=== PATIENT | male | born 1990 | race American Indian/Alaskan Native ===

== ENCOUNTER 2019-09-01 23:09 | Emergency (ER) | payer OTHER ==
[2019-09-01 23:19] VITALS: BP 135/80
[2019-09-02 01:16] LABS: Bilirubin,Urine NEG (Negative); Blood,Urine NEG (Negative); Color,Urine Yellow (Yellow); Protein,Urine <15 mg/dL mg/dL (Negative); Urobilinogen,Urine < 2.0 mg/dL (<2.0)
[2019-09-02] MEDS ORDERED: LIDOCAINE VISCOUS 2% 15 ML ORAL LIQD PO ONE (01:20)
[2019-09-02] MEDS ORDERED: ALUM-MAG HYDROXIDE-SIMETHICONE 200-200-20MG/5ML ORAL LIQD 30 ML PO ONE (01:20)
[2019-09-02 01:23] LABS: Basophils % (Auto) 0.3 % (0.0-1.8); Eosinophils # (Auto) 0.1 K/mm3 (0.0-0.4); Eosinophils % (Auto) 2.8 % (0.0-4.3); Hematocrit 42.2 % (35.5-45.6); Hemoglobin 13.9 gm/dl (11.8-15.2); Lymphocytes # (Auto) 2.1 K/mm3 (1.2-5.4); Lymphocytes % (Auto) 39.9 % (13.4-35.0); Mean Corpuscular HGB Conc 33 % (32-34); Mean Corpuscular Volume 86 fl (84-94); Monocytes # (Auto) 0.8 K/mm3 (0.0-0.8); Monocytes % (Auto) 14.3 % (0.0-7.3); Platelet Count 106 K/mm3 (140-440); Red Cell Distribution Width 12.8 % (13.2-15.2)
--- NOTE | 2019-09-02 01:25 | Emergency Department Report ---
ED Abdominal Pain HPI - General Chief Complaint: Abdominal Pain Stated Complaint: UPPER ABD PAIN Time Seen by Provider: 09/02/19 01:15 Source: patient Mode of arrival: Ambulatory Limitations: No Limitations - History of Present Illness Initial Comments: Mr. Knight is s 28 y/o w/m who presents for abd pain with n/v x 3 days. There is no fever or chills , no headache, no back pain, or dysuria , no hematuria, no frequency, for past 3 days. symptoms are exacerbated by nothing, symptoms are relievd by nothing. Last n/v this evening, last po inake approx 530 pm. MD Complaint: abdominal pain Onset/Timin -: days(s) Location: epigastric Radiation: epigastric Migration to: epigastric Severity: moderate Severity scale (0 -10): 4 Quality: aching, burning Consistency: constant Improves With: nothing Worsens With: nothing Associated Symptoms: nausea, vomiting, diarrhea. denies: fever, chills, constipation, dysuria, hematemesis, hematochezia, melena, hematuria, anorexia, syncope - Related Data Previous Rx's Medication Instructions Recorded Last Taken Type Doxycycline Hyclate [Doxycycline 100 mg PO BID 10 Days #20 tab 09/02/19 Unknown Rx Hyclate TAB] Fluconazole [Diflucan TAB] 200 mg PO ONCE #1 tablet 09/02/19 Unknown Rx Naproxen 500 mg PO BID PRN #30 tablet 09/02/19 Unknown Rx metroNIDAZOLE [Flagyl] 500 mg PO BID 7 Days #14 tab 09/02/19 Unknown Rx Allergies Allergy/AdvReac Type Severity Reaction Status Date / Time No Known Allergies Allergy Unverified 09/02/19 00:50 ED Review of Systems ROS: Stated complaint: UPPER ABD PAIN Other details as noted in HPI Constitutional: denies: chills, fever Eyes: denies: eye pain, eye discharge, vision change ENT: denies: ear pain, throat pain Respiratory: denies: cough, shortness of breath, wheezing Cardiovascular: denies: chest pain, palpitations Endocrine: no symptoms reported Gastrointestinal: abdominal pain, nausea, vomiting, diarrhea. denies: constip ation, hematemesis, melena, hematochezia Genitourinary: denies: urgency, dysuria Musculoskeletal: denies: back pain, joint swelling, arthralgia Skin: denies: rash, lesions Neurological: denies: headache, weakness, paresthesias Psychiatric: denies: anxiety, depression Hematological/Lymphatic: denies: easy bleeding, easy bruising ED Past Medical Hx - Past Medical History Previous Medical History?: Yes Additional medical history: HSV 2 - Surgical History Past Surgical History?: No - Social History Smoking Status: Current Every Day Smoker Substance Use Type: None - Medications Home Medications: Home Medications Medication Instructions Recorded Confirmed Last Taken Type Doxycycline Hyclate [Doxycycline 100 mg PO BID 10 Days #20 tab 09/02/19 Unknown Rx Hyclate TAB] Fluconazole [Diflucan TAB] 200 mg PO ONCE #1 tablet 09/02/19 Unknown Rx Naproxen 500 mg PO BID PRN #30 tablet 09/02/19 Unknown Rx metroNIDAZOLE [Flagyl] 500 mg PO BID 7 Days #14 tab 09/02/19 Unknown Rx ED Physical Exam - General Limitations: No Limitations General appearance: alert, in no apparent distress - Head Head exam: Present: atraumatic, normocephalic - Eye Eye exam: Present: normal appearance, EOMI - ENT ENT exam: Present: normal exam, normal orophraynx - Neck Neck exam: Present: normal inspection, full ROM. Absent: tenderness, lymphadenopathy, thyromegaly - Respiratory Respiratory exam: Present: normal lung sounds bilaterally. Absent: respiratory distress, wheezes, rhonchi, chest wall tenderness - Cardiovascular Cardiovascular Exam: Present: regular rate, normal rhythm, normal heart sounds. Absent: systolic murmur, diastolic murmur, rubs, gallop - GI/Abdominal GI/Abdominal exam: Present: soft, tenderness, normal bowel sounds. Absent: distended, guarding, rebound, rigid, bruit, hernia - Rectal Rectal exam: Present: deferred - Extremities Exam Extremities exam: Present: normal inspection, full ROM, normal capillary refill. Absent: tenderness - Back Exam Back exam: Present: normal inspection, full ROM. Absent: tenderness, CVA tenderness (R), CVA tenderness (L), muscle spasm, paraspinal tenderness, patricia tebral tenderness, rash noted - Neurological Exam Neurological exam: Present: alert, oriented X3, CN II-XII intact, normal gait, reflexes normal. Absent: motor sensory deficit - Psychiatric Psychiatric exam: Present: normal affect, normal mood - Skin Skin exam: Present: warm, dry, intact, normal color. Absent: rash ED Course Vital Signs 09/01/19 23:17 Temperature 97.6 F Pulse Rate 82 Respiratory 18 Rate Blood Pressure 135/80 O2 Sat by Pulse 94 Oximetry ED Medical Decision Making - Lab Data Result diagrams: 09/02/19 01:01 09/02/19 01:01 Labs 09/02/19 09/02/19 09/02/19 01:01 01:01 Unknown WBC 5.3 RBC 4.90 Hgb 13.9 Hct 42.2 MCV 86 MCH 28 MCHC 33 RDW 12.8 L Plt Count 106 L Lymph % (Auto) 39.9 H [place] % (Auto) 14.3 H Eos % (Auto) 2.8 Baso % (Auto) 0.3 Lymph # 2.1 [place] # 0.8 Eos # 0.1 Baso # 0.0 Seg Neutrophils % 42.7 Seg Neutrophils # 2.3 Sodium 140 Potassium 3.9 Chloride 99.7 Carbon Dioxide 28 Anion Gap 16 BUN 12 Creatinine 0.8 Estimated GFR > 60 BUN/Creatinine Ratio 15 Glucose 109 H Calcium 9.6 Total Bilirubin 0.20 AST 28 ALT 26 Alkaline Phosphatase 46 Total Protein 6.4 Albumin 4.3 Albumin/Globulin Ratio 2.0 Lipase 29 Urine Color Yellow Urine Turbidity Cloudy Urine pH 8.0 H Ur Specific [place] 1.015 Urine Protein <15 mg/dl Urine Glucose (UA) Neg Urine Ketones Neg Urine Blood Neg Urine Nitrite Neg Urine Bilirubin Neg Urine Urobilinogen < 2.0 Ur Leukocyte Esterase Neg Urine WBC (Auto) 16.0 H Urine RBC (Auto) 3.0 Urine Yeast (Budding) 3+ - Radiology Data Radiology results: report reviewed, image reviewed Ordering Physician: LEAH MUNOZ NP Date of Service: 09/02/19 Procedure(s): CT abdomen pelvis wo con Accession Number(s): [id number] cc: LEAH MUNOZ NP CT abdomen pelvis wo con INDICATION: abd pain. TECHNIQUE: All CT scans at this location are performed using the following dose modulation technique: Automated exposure control. CONTRAST: None. COMPARISON: None available. CT ABDOMEN: The parenchymal organs are unremarkable in appearance. Negative for abdominal mass, fluid or inflammation. The bowel is not dilated or thickened. CT PELVIS: Negative for mass, fluid or inflammation. IMPRESSION: Negative for obstruction or localized inflammation. Signer Name: Joe Zimmerman MD Signed: 09/02/2019 3:36 AM Workstation Name: [id number] Transcribed By: ES Dictated By: Joe Zimmerman MD Electronically Authenticated By: Joe Zimmerman MD Signed Date/Time: 09/02/19335 DD/ 9 TD/TT: - Medical Decision Making ct abd and pelvis ar normal , ua; pos for luek, wbc, pt now advises that he was dx with hsv 4 days ago, gc/ch cultures neg, tx with valtrax, plan: flagyl , doxycyline, po , and diflucan. pyuria /yeast is consistent with trich which not covered by pcp, with intitial diagnosis, doxy will cover urethritis. pt verbalized agreement and understanding of discharge plan. pt dc'd to home in stable condition at this time. Critical care attestation.: If time is entered above; I have spent that time in minutes in the direct care of this critically ill patient, excluding procedure time. ED Disposition Clinical Impression: Bacteriuria with pyuria Abdominal pain Qualifiers: Abdominal location: generalized Qualified Code(s): R10.84 - Generalized a bdominal pain Disposition: DC-01 TO HOME OR SELFCARE Is pt being admited?: No Does the pt Need Aspirin: No Condition: Stable Instructions: Urinary Tract Infection in Men (ED), Abdominal Pain (ED) Prescriptions: Fluconazole [Diflucan TAB] 200 mg PO ONCE #1 tablet Doxycycline Hyclate [Doxycycline Hyclate TAB] 100 mg PO BID 10 Days #20 tab metroNIDAZOLE [Flagyl] 500 mg PO BID 7 Days #14 tab Naproxen 500 mg PO BID PRN #30 tablet PRN Reason: pain Referrals: PRIMARY CARE, [Primary Care Provider] - 3-5 Days Forms: Work/School Release Form(ED) Time of Disposition: 04:02
[2019-09-02] MEDS ORDERED: traMADol 50 MG TAB PO ONE (01:29)
[2019-09-02 01:34] LABS: Alanine Aminotransferase 26 units/L (7-56); Albumin 4.3 g/dL (3.9-5); BUN/Creatinine Ratio 15; Blood Urea Nitrogen 12 mg/dL (9-20); Calcium 9.6 mg/dL (8.4-10.2); Hemolysis Index 7
[2019-09-02] MEDS ORDERED: ONDANSETRON 4 MG/2 ML INJ IV ONE (02:45)
[2019-09-02] MEDS ORDERED: KETOROLAC 30 MG/1 ML INJ IV ONE (02:45)
[2019-09-02] MEDS ORDERED: SODIUM CHLORIDE 0.9% 1000 ML 1,000 ML IV ONE (02:45)
--- NOTE | 2019-09-02 03:41 | Cat Scan Report ---
CT abdomen pelvis wo con INDICATION: abd pain. TECHNIQUE: All CT scans at this location are performed using the following dose modulation technique: Automated exposure control. CONTRAST: None. COMPARISON: None available. CT ABDOMEN: The parenchymal organs are unremarkable in appearance. Negative for abdominal mass, fluid or inflammation. The bowel is not dilated or thickened. CT PELVIS: Negative for mass, fluid or inflammation. IMPRESSION: Negative for obstruction or localized inflammation. Signer Name: Joe Zimmerman MD Signed: 09/02/2019 3:36 AM Workstation Name: [id number]
== END 2019-09-02 04:37 | disposition home or self-care (01) ==
LOC: ED 23:09
DX: R82.71 Bacteriuria (principal); R10.13 Epigastric pain; R11.2 Nausea with vomiting, unspecified; F17.200 Nicotine dependence, unspecified, uncomplicated; Z79.899 Other long term (current) drug therapy
CPT/HCPCS: 36415; 74176; 80053; 81001; 83690; 85025; 87086; 96361; 96374; 96375; 99284; J1885; J2405; J7030